=== PATIENT | female | born 1980 | race Caucasian/White ===

== ENCOUNTER 2017-10-29 00:31 | Emergency (ER) | payer MEDICAID ==
[~2017-10-29] VITALS: Ht 170.2 cm; Wt 69.4 kg
[~2017-10-29 00:31] MED LIST: ALBE200T2 PO; METO25TA6 PO; OMEP40CA37 PO; VALS40TA2 PO
[2017-10-29] MEDS ORDERED: CEPH500C5 PO (01:08)
[2017-10-29] MEDS ORDERED: SULF1TAB49 PO (01:08)
[2017-10-29] MEDS ORDERED: IBUP-1984 PO (01:08)
[2017-10-29] MEDS ORDERED: HYDR-3965 PO (01:08)
[2017-10-29 01:29] VITALS: BP 164/113
== END 2017-10-29 01:31 | disposition home or self-care (01) ==
LOC: ER 00:32
DX: L03.012 Cellulitis of left finger (principal); I10 Essential (primary) hypertension; F12.10 Cannabis abuse, uncomplicated; F15.90 Other stimulant use, unspecified, uncomplicated; Z56.0 Unemployment, unspecified; Z98.890 Other specified postprocedural states; Z88.5 Allergy status to narcotic agent
CPT/HCPCS: 99283

== ENCOUNTER 2017-10-31 00:47 | Emergency (ER) | payer MEDICAID ==
[~2017-10-31] VITALS: Ht 170.2 cm; Wt 68.5 kg
[~2017-10-31 00:47] MED LIST changes: +CEPH500C5 PO; +HYDR-3965 PO; +IBUP-1984 PO; +SULF1TAB49 PO
[2017-10-31] MEDS ORDERED: HYDROcodone/acetaminophen 10/325mg tab PO ONE (02:15)
[2017-10-31] MEDS ORDERED: LIDOcaine 1.5% w/epinephrine 1:200,000 5ml ampul IJ ONE (02:15)
[2017-10-31 02:58] VITALS: BP 123/74
== END 2017-10-31 03:00 | disposition left against medical advice (07) ==
LOC: ER 00:48
DX: L03.012 Cellulitis of left finger (principal); I10 Essential (primary) hypertension; F12.10 Cannabis abuse, uncomplicated; F15.10 Other stimulant abuse, uncomplicated; Z88.6 Allergy status to analgesic agent
CPT/HCPCS: 99282; J3490

== ENCOUNTER 2018-04-29 04:03 | Emergency (ER) | payer MEDICAID ==
[~2018-04-29] VITALS: Ht 170.2 cm; Wt 70.0 kg
[~2018-04-29 04:03] MED LIST changes: -HYDR-3965 PO; -IBUP-1984 PO; -SULF1TAB49 PO
[2018-04-29] MEDS ORDERED: normal saline 1000ml 1,000 ML IV ONE ×2 (04:20)
[2018-04-29] MEDS ORDERED: morphine 4 MG/ML inj SYRINge IV ONE (04:20)
[2018-04-29] MEDS ORDERED: ondansetron/PF 4mg/2ml inj IV ONE (04:20)
[2018-04-29 04:39] LABS: BASOPHILS % (AUTO) 0.1 % (0-1); EOSINOPHILS % (AUTO) 0 % (0-6); HEMATOCRIT 34.4 % (35.0-45.0); HEMOGLOBIN 11.3 g/dl (12.0-16.0); LYMPHOCYTES # (AUTO) 0.3 X10'3 (1.1-4.8); LYMPHOCYTES % (AUTO) 4.9 % (21-51); MEAN CORPUSCULAR HEMOGLOBIN 23.3 PG (27.0-31.0); MEAN CORPUSCULAR HGB CONC 32.7 % (33.0-36.5); MEAN CORPUSCULAR VOLUME 71.4 FL (78-98); MEAN PLATELET VOLUME 7.3 FL (7.4-10.4); MONOCYTES # (AUTO) 0.3 X10'3 (0-0.9); MONOCYTES % (AUTO) 5.3 % (2-12); NEUTROPHILS # (AUTO) 5.2 X10'3 (1.8-7.7); NEUTROPHILS % (AUTO) 89.7 % (42-75); PLATELET COUNT 265 X10'3 (140-440); RED BLOOD COUNT 4.82 X10'6 (4.20-5.60); RED CELL DISTRIBUTION WIDTH 18.4 % (11.5-14.5); WHITE BLOOD COUNT 5.9 X10'3 (4.5-11.0)
[2018-04-29 04:54] LABS: INR 1.1 INR; PROTHROMBIN TIME 11.1 SECONDS (9.0-12.0)
[2018-04-29 04:57] LABS: ALANINE AMINOTRANSFERASE 24 U/L (12-78); ALBUMIN 3.2 G/DL (3.4-5.0); ALBUMIN/GLOBULIN RATIO 0.9 (1.1-1.5); ALKALINE PHOSPHATASE 81 IU/L (46-116); ANION GAP 8 (8-16); ANISOCYTOSIS 2+; ASPARTATE AMINO TRANSFERASE 20 U/L (10-37); BILIRUBIN,TOTAL 0.3 MG/DL (0.1-1.0); BLOOD UREA NITROGEN 13 MG/DL (7-18); BUN/CREATININE RATIO 12.5 (6.6-38.0); CALCIUM 8.4 MG/DL (8.5-10.1); CHLORIDE 102 MMOL/L (99-107); CREATININE 1.04 MG/DL (0.40-0.90); GLUCOSE 94 MG/DL (70-104); MICROCYTOSIS 1+; PLATELET ESTIMATE NORMAL; POTASSIUM 3.4 MMOL/L (3.5-5.1); SODIUM 135 MMOL/L (135-145); TOTAL CARBON DIOXIDE 24.6 MMOL/L (24-32); TOTAL PROTEIN 6.7 G/DL (6.4-8.2); eGFR 59 ML/MIN
[2018-04-29 05:19] LABS: HCG SERUM QL NEGATIVE
[2018-04-29 05:39] VITALS: BP 177/98
[2018-04-29 05:56] LABS: CLARITY,URINE CLOUDY (Clear); COLOR,URINE BROWN (Yellow); UA COLLECTION TYPE CLN CATCH MIDSTREAM
[2018-04-29 06:24] LABS: BACTERIA,URINE 2+ /HPF (Neg); RBC,URINE TNTC /HPF (0-2); SQUAMOUS EPITHELIAL CELL,UR MODERATE /LPF (FEW)
== END 2018-04-29 05:49 | disposition left against medical advice (07) ==
LOC: ER 04:03
DX: N92.0 Excessive and frequent menstruation with regular cycle (principal); R10.84 Generalized abdominal pain; R11.2 Nausea with vomiting, unspecified; I10 Essential (primary) hypertension; F12.90 Cannabis use, unspecified, uncomplicated; F15.90 Other stimulant use, unspecified, uncomplicated; Z88.5 Allergy status to narcotic agent; Z88.6 Allergy status to analgesic agent; Z79.899 Other long term (current) drug therapy; Z56.0 Unemployment, unspecified
CPT/HCPCS: 36415; 80053; 81001; 84703; 85025; 85610; 87077; 87088; 87186; 96361; 96374; 96375; 99284; J2270; J2405; J7030

== ENCOUNTER 2018-07-27 23:17 | Emergency (ER) | payer MEDICAID ==
[~2018-07-27] VITALS: Ht 170.2 cm; Wt 61.0 kg
[2018-07-27 23:17] VITALS: BP 158/104
[2018-07-27] MEDS ORDERED: ketorolac trometh inj. 60 MG/2 ML VIAL IM ONE (23:35)
[2018-07-27] MEDS ORDERED: DICL50TA8 PO (23:36)
== END 2018-07-27 23:48 | disposition home or self-care (01) ==
LOC: ER 23:17
DX: R07.81 Pleurodynia (principal); I10 Essential (primary) hypertension; F12.10 Cannabis abuse, uncomplicated; F15.10 Other stimulant abuse, uncomplicated; Z56.0 Unemployment, unspecified; Z88.6 Allergy status to analgesic agent
CPT/HCPCS: 71100; 96372; 99284; J1885

== ENCOUNTER 2019-07-03 00:05 | Emergency (ER) | payer MEDICAID ==
[~2019-07-03] VITALS: Ht 170.2 cm; Wt 54.0 kg
[~2019-07-03 00:05] MED LIST changes: -CEPH500C5 PO; +DICL50TA8 PO; +OMEP40CA13 PO; -OMEP40CA37 PO
[2019-07-03 00:12] VITALS: BP 186/113
== END 2019-07-03 01:23 | disposition left against medical advice (07) ==
LOC: ER 00:06
DX: R07.81 Pleurodynia (principal); Z53.21 Procedure and treatment not carried out due to patient leaving prior to being seen by health care provider

== ENCOUNTER 2020-03-31 21:45 | Emergency (ER) | payer MEDICAID ==
[~2020-03-31] VITALS: Ht 170.2 cm; Wt 63.6 kg
[2020-03-31] MEDS ORDERED: morphine 4 MG/ML inj SYRINge IV PRN ×2 (22:05→22:50)
[2020-03-31] MEDS ORDERED: normal saline 1000ML IV soln IVB ONE (22:05)
[2020-03-31] MEDS ORDERED: ondansetron/PF 4mg/2ml inj IV ONE (22:05)
[2020-03-31 22:27] LABS: HEMOGLOBIN 12.7 g/dl (12.0-16.0); LYMPHOCYTES # (AUTO) 0.4 X10'3 (1.1-4.8); MONOCYTES # (AUTO) 0.6 X10'3 (0-0.9); MONOCYTES % (AUTO) 2.7 % (2-12)
[2020-03-31 22:28] LABS: BASOPHILS # (AUTO) 0.1 X10'3 (0-0.2); BASOPHILS % (AUTO) 0.2 % (0-1); EOSINOPHILS % (AUTO) 0 % (0-6); HEMATOCRIT 38.1 % (35.0-45.0); MEAN CORPUSCULAR HEMOGLOBIN 27.5 PG (27.0-31.0); MEAN CORPUSCULAR HGB CONC 33.2 g/dL (33.0-36.5); MEAN CORPUSCULAR VOLUME 82.8 FL (78-98); MEAN PLATELET VOLUME 7.9 FL (7.4-10.4); NEUTROPHILS # (AUTO) 20.2 X10'3 (1.8-7.7); NEUTROPHILS % (AUTO) 95.1 % (42-75); RED BLOOD COUNT 4.61 X10'6 (4.20-5.60); RED CELL DISTRIBUTION WIDTH 16.4 % (11.5-14.5); WHITE BLOOD COUNT 21.3 X10'3 (4.5-11.0)
[2020-03-31 22:29] LABS: ALANINE AMINOTRANSFERASE 25 U/L (12-78); ALBUMIN 3.8 G/DL (3.4-5.0); ALKALINE PHOSPHATASE 78 IU/L (46-116); ANION GAP 7 (8-16); ASPARTATE AMINO TRANSFERASE 23 U/L (10-37); BILIRUBIN,TOTAL 0.8 MG/DL (0.1-1.0); BLOOD UREA NITROGEN 8 MG/DL (7-18); BUN/CREATININE RATIO 6.6 (6.6-38.0); CALCIUM 8.7 MG/DL (8.5-10.1); CHLORIDE 101 MMOL/L (99-107); CREATININE 1.21 MG/DL (0.40-0.90); GLUCOSE 106 MG/DL (70-104); LIPASE 58 U/L (73-393); POTASSIUM 4.1 MMOL/L (3.5-5.1); SODIUM 135 MMOL/L (135-145); TOTAL CARBON DIOXIDE 27.5 MMOL/L (24-32); TOTAL PROTEIN 7.6 G/DL (6.4-8.2); eGFR 49 ML/MIN
[2020-03-31] MEDS ORDERED: famotidine/PF 10 mg/ml inj IV ONE (22:50)
[2020-03-31] MEDS ORDERED: normal saline 1000ML IV soln IV ONE (22:50)
[2020-03-31] MEDS ORDERED: pantoprazole 40 MG vial IV ONE (22:50)
[2020-03-31 22:58] LABS: URINE HCG NEGATIVE (NEG)
[2020-03-31 23:11] LABS: URINE AMPHETAMINE SCREEN POSITIVE (Neg); URINE BARBITUATE SCREEN NEGATIVE (Neg); URINE BENZODIAZEPINES SCREEN NEGATIVE (Neg); URINE CANNABINOID SCREEN NEGATIVE (Neg); URINE COCAINE SCREEN NEGATIVE (Neg); URINE METHADONE SCREEN NEGATIVE (Neg); URINE OPIATE SCREEN POSITIVE (Neg); URINE PHENCYCLIDINE SCREEN NEGATIVE (Neg)
[2020-03-31 23:59] LABS: CLARITY,URINE SLIGHTLY CLOUDY (Clear); COLOR,URINE YELLOW (Yellow); GLUCOSE, URINE NEGATIVE (Neg); KETONES,URINE NEGATIVE (Neg); LEUKOCYTE ESTERASE ,URINE LARGE (Neg); NITRITES, URINE NEGATIVE (Neg); OCCULT BLOOD,URINE LARGE (Neg); PROTEIN,URINE NEGATIVE (Neg); UROBILINOGEN,URINE 0.2 E.U/dL (0.2-1.0)
[2020-04-01 00:05] LABS: UA COLLECTION TYPE CLN CATCH MIDSTREAM
[2020-04-01 00:17] LABS: BACTERIA,URINE 2+ /HPF (Neg); MUCUS STRANDS FEW /LPF (Neg); RBC,URINE 0-2 /HPF (0-2); SQUAMOUS EPITHELIAL CELL,UR MANY /LPF (FEW); WBC,URINE 20-30 /HPF (0-4)
[2020-04-01] MEDS ORDERED: CefTRIAXone 2gm/D5W 50ml 50 ML IV ONE (00:25)
[2020-04-01 02:25] VITALS: BP 146/92
[2020-04-01] MEDS ORDERED: CEPH-572 PO (02:34)
[2020-04-01] MEDS ORDERED: ONDA4TAB6 PO (02:34)
[2020-04-01 02:56] LABS: PLATELET COUNT 233 X10'3 (140-440)
== END 2020-04-01 03:42 | disposition home or self-care (01) ==
LOC: ER 21:45
DX: R10.84 Generalized abdominal pain (principal); F15.10 Other stimulant abuse, uncomplicated; N28.9 Disorder of kidney and ureter, unspecified; N39.0 Urinary tract infection, site not specified; E86.0 Dehydration; R11.0 Nausea; I10 Essential (primary) hypertension; F12.90 Cannabis use, unspecified, uncomplicated; Z98.890 Other specified postprocedural states; Z56.0 Unemployment, unspecified; Z88.6 Allergy status to analgesic agent; Z88.5 Allergy status to narcotic agent; Z79.2 Long term (current) use of antibiotics; Z79.899 Other long term (current) drug therapy
CPT/HCPCS: 36415; 74176; 80053; 80305; 80320; 81001; 81025; 83605; 83690; 84145; 85025; 87040; 96361; 96365; 96375; 96376; 99285; C9113; J0696; J2270; J2405; J3490; J7030; 81003

== ENCOUNTER 2020-05-06 16:58 | Emergency (ER) | payer MEDICAID ==
[~2020-05-06] VITALS: Ht 170.2 cm; Wt 68.2 kg
[~2020-05-06 16:58] MED LIST changes: +ONDA4TAB6 PO
--- NOTE | 2020-05-06 17:11 | NUR ---
PT GIVEN 2 ICE PACKS FOR LOWER LEG SWELLING.
[2020-05-06] MEDS ORDERED: LIDOcaine 1% W/epiNEPHrine 1:200,000 10ml vial IJ ONE (17:20)
--- NOTE | 2020-05-06 17:24 | NUR ---
PT OUT TO XRAY VIA [facility] WITH DIRECTOR TELEVISION NEWS
[2020-05-06 17:31] VITALS: BP 154/99
== END 2020-05-06 18:18 | disposition home or self-care (01) ==
LOC: ER 16:58
DX: S81.811A Laceration without foreign body, right lower leg, initial encounter (principal); M25.511 Pain in right shoulder; M54.6 Pain in thoracic spine; I10 Essential (primary) hypertension; F12.90 Cannabis use, unspecified, uncomplicated; F15.90 Other stimulant use, unspecified, uncomplicated; Z98.890 Other specified postprocedural states; Z56.0 Unemployment, unspecified; Z88.6 Allergy status to analgesic agent; Z88.5 Allergy status to narcotic agent; Z79.899 Other long term (current) drug therapy; W11.XXXA Fall on and from ladder, initial encounter; Y93.89 Activity, other specified; Y92.89 Other specified places as the place of occurrence of the external cause; Y99.8 Other external cause status
CPT/HCPCS: 73590; 99284

== ENCOUNTER 2021-06-22 22:49 | Emergency (ER) | payer MEDICAID ==
[~2021-06-22] VITALS: Ht 170.2 cm; Wt 65.9 kg
[~2021-06-22 22:49] MED LIST changes: +ALBE200T14 PO; -ALBE200T2 PO; +LOP25T PO; -METO25TA6 PO; -OMEP40CA13 PO; +OMEP40CA21 PO
[2021-06-23 00:06] VITALS: BP 177/107
[2021-06-23] MEDS ORDERED: ibuprofen tablet 400 MG TABLET PO ONE (00:40)
== END 2021-06-23 01:32 | disposition home or self-care (01) ==
LOC: ER 22:50
DX: L03.811 Cellulitis of head [any part, except face] (principal); I10 Essential (primary) hypertension; F12.90 Cannabis use, unspecified, uncomplicated; F15.90 Other stimulant use, unspecified, uncomplicated; Z98.890 Other specified postprocedural states; Z56.0 Unemployment, unspecified; Z88.6 Allergy status to analgesic agent; Z88.5 Allergy status to narcotic agent; Z79.899 Other long term (current) drug therapy; Z79.2 Long term (current) use of antibiotics
CPT/HCPCS: 99282

== ENCOUNTER 2023-10-14 17:30 | Emergency (ER) | payer MEDICAID | END 2023-10-14 18:12 | disposition left against medical advice (07) | LOC: ER 17:31 | DX: L08.9 Local infection of the skin and subcutaneous tissue, unspecified (principal); Z53.21 Procedure and treatment not carried out due to patient leaving prior to being seen by health care provider ==

== ENCOUNTER 2023-10-14 20:03 | Emergency (ER) | payer MEDICAID | END 2023-10-14 22:09 | disposition left against medical advice (07) | LOC: ER 20:03 | DX: L08.9 Local infection of the skin and subcutaneous tissue, unspecified (principal); Z53.21 Procedure and treatment not carried out due to patient leaving prior to being seen by health care provider ==

== ENCOUNTER 2025-03-19 21:21 | Emergency (ER) | payer MEDICAID ==
[~2025-03-19] VITALS: Ht 170.2 cm; Wt 68.2 kg
[2025-03-19 21:24] VITALS: BP 128/78; PULSE 93; RESP 18; O2SAT 98
--- NOTE | 2025-03-19 22:20 | RADIOLOGY REPORT ---
CLINICAL INDICATION: ANKLE PAIN TECHNIQUE: DI ANKLE, COMPLETE(3VW MIN) Comparison: None FINDINGS/IMPRESSION: : There is no evidence of acute fracture or dislocation. Soft tissues are unremarkable.
--- NOTE | 2025-03-19 22:40 | Physician Documentation ---
History of Present Illness ~ Chief Complaint: Ankle pain Stated Complaint: L LEG PAIN Time Seen by MD: 21:54 Primary Medical Doctor: [facility] LOCATION HPI Patient is seen today with complaints of pain in his left ankle as sort about a week ago as well as some swelling without any specific injury. Patient denies any chest pain or shortness of breath or abdominal pain or nausea, vomiting, diarrhea or recent illness. He has no other concern or complaint at this time. Tetanus witin 5 years: Yes Medication Reconciliation Allergies: Coded Allergies: acetaminophen (Verified Allergy, Mild, 03/19/25) codeine phosphate (Verified Allergy, Mild, 03/19/25) Scheduled Albendazole (Albenza), 2 TAB PO ONCE Metoprolol Tartrate* (Lopressor tablet*), 1 TABLET PO BID Metoprolol Tartrate* (Lopressor tablet*), 1 TABLET PO BID Omeprazole (Prilosec), 1 CAP PO QAM Ondansetron Hcl (Zofran), 1 TAB PO Q6H Valsartan (Diovan), 1 TABLET PO DAILY Valsartan (Diovan), 1 TABLET PO DAILY Scheduled PRN Diclofenac Sodium (Diclofenac Sodium), 1 TABLET PO BID PRN for pain Past Medical History Past Medical History: Hypertension Past Surgical History: Other Past Family History: NONCONTRIBUTORY Alcohol Use: None Drug Use: marijuana, methamphetamine Lives with: Family Lives In: Home Occupation: unemployed Review of Systems Constitutional: Denies: chills, fever, weakness Eyes: Denies: pain, blurred vision ENT: Denies: ear pain, nose pain, throat pain, mouth pain Respiratory: Denies: cough, shortness of breath Cardiovascular: Denies: chest pain, palpitations Gastrointestinal: Denies: abdominal pain, nausea, vomiting Genitourinary: Denies: burning, dysuria Female Genitalia: Denies: vaginal discharge, pelvic pain Neurological: Denies: headache, dizziness Musculoskeletal: Denies: pain, swelling Integumentary: Denies: rash, lesions Allergic/Immunologic: Denies: hives, itching Hematologic/Lymphatic: Denies: no symptoms reported Psychiatric: Denies: depression, anxiety Physical Exam Vital Signs: Temperature: 98.9, Source: Oral, Heart Rate: 93, Respiratory Rate: 18, BP: 128/78, Pulse Oximetry: 98, Weight: 68.180 Physical Exam General: Awake and Alert, no acute distress. HEENT: Conjunctiva pink, Sclera clear, Mucus Membranes moist. Neck: Supple without masses and tenderness. Resp: Unlabored. Lungs clear to auscultation bilaterally. Heart: Regular Rate and rhythm, normal S1 and S2 without murmur, rub or gallop. Musculoskeletal: Patient on exam has very minimal swelling of left ankle without any erythema or warmth or induration or sign of infection. Patient has no ecchymosis in his neurovascularly intact distally. Motor function intact distally. Extremities: No cyanosis,clubbing or edema. Skin: Warm and Dry. Progress Results/Orders Results/Orders Vital Signs 03/19/25 21:24 Temp 98.9 Pulse 93 Resp 18 B/P (MAP) 128/78 Pulse Ox 98 EKG/XRAY/CT/US/VASC/MRI Bone/Soft Tissue X-Ray (Ext.) : Additional Comment X-ray of left ankle interpreted by myself today shows no sign of acute fracture, no osteolytic or blastic lesions, bones in anatomic alignment. DIAGNOSTIC RADIOLOGY Patient: BRITNEY GOMEZ Medical Record: [id number] [facility] : 1980, Age: 44 Sex: Female Location: ER Patient Status: REG ER Service Date/Time: 03/19/252125 Ordering Physician: YUE CHUA MD Exam: ANKLE, COMPLETE(3VW MIN) CLINICAL INDICATION: ANKLE PAIN TECHNIQUE: DI ANKLE, COMPLETE(3VW MIN) Comparison: None FINDINGS/IMPRESSION: : There is no evidence of acute fracture or dislocation. Soft tissues are unremarkable. Electronically Signed by:JORGE ALDRIDGE MD Date & Time: 03/19/252216 Dictated by: JORGE ALDRIDGE MD Dictation date and time: 03/19/25 4430 Primary Care Provider: NO PRIMARY CARE PROVIDER cc: YUE CHUA MD ~ Medical Decision Making Findings Patient is seen today with complaints of pain in his left ankle as sort about a week ago as well as some swelling without any specific injury. Patient denies any chest pain or shortness of breath or abdominal pain or nausea, vomiting, diarrhea or recent illness. He has no other concern or complaint at this time. Patient did have x-ray taken of left ankle that showed no sign of acute fracture. Patient will follow up with primary care in 2-5 days if no better as needed sooner. Return to ED with any worsening, concerning or changing symptoms . Departure Disposition: HOME / SELF CARE / HOMELESS Impression: Primary Impression: Sprain of ankle Qualified Codes: S93.402A - Sprain of unspecified ligament of left ankle, initial encounter Condition: Stable Discharge Instructions: Ankle Sprain Additional Instructions: Patient did have x-ray taken of left ankle that showed no sign of acute fracture. Patient will follow up with primary care in 2-5 days if no better as needed sooner. Return to ED with any worsening, concerning or changing symptoms. Referrals: NO PRIMARY CARE PROVIDER (PCP) Signature Scribe Signature: No scribe Attestation: No scribe RACHEL MORENO PAC Mar 19, 2025 22:40
[2025-03-19 23:01] VITALS: TEMP 98.9
== END 2025-03-19 23:02 | disposition home or self-care (01) ==
LOC: ER 21:21
DX: S93.492A Sprain of other ligament of left ankle, initial encounter (principal); I10 Essential (primary) hypertension; F12.90 Cannabis use, unspecified, uncomplicated; F15.90 Other stimulant use, unspecified, uncomplicated; Z88.5 Allergy status to narcotic agent; Z88.8 Allergy status to other drugs, medicaments and biological substances; Z79.899 Other long term (current) drug therapy; Z56.0 Unemployment, unspecified; X58.XXXA Exposure to other specified factors, initial encounter; Y93.89 Activity, other specified; Y92.89 Other specified places as the place of occurrence of the external cause; Y99.8 Other external cause status
CPT/HCPCS: 73610; 99283

== ENCOUNTER 2025-03-20 00:03 | Emergency (ER) | payer MEDICAID ==
[~2025-03-20] VITALS: Ht 170.2 cm; Wt 68.2 kg
[2025-03-20 00:27] VITALS: BP 148/79; PULSE 94; RESP 20; O2SAT 99
--- NOTE | 2025-03-20 03:24 | Physician Documentation ---
History of Present Illness ~ Chief Complaint: Ankle pain Stated Complaint: ANKLE PAIN Time Seen by MD: 03:23 Primary Medical Doctor: [facility] LOCATION HPI 44-year-old female with left ankle swelling. The patient was seen here yesterday for ankle swelling. She had an x-ray that did not show a fracture. Apparently she was told to check back in and have an ultrasound rule out DVT. This was ordered before my evaluation. The patient has no other acute concerns at this time. Tetanus witin 5 years: Yes Medication Reconciliation Allergies: Coded Allergies: acetaminophen (Verified Allergy, Mild, 03/20/25) codeine phosphate (Verified Allergy, Mild, 03/20/25) Scheduled Albendazole (Albenza), 2 TAB PO ONCE Metoprolol Tartrate* (Lopressor tablet*), 1 TABLET PO BID Metoprolol Tartrate* (Lopressor tablet*), 1 TABLET PO BID Omeprazole (Prilosec), 1 CAP PO QAM Ondansetron Hcl (Zofran), 1 TAB PO Q6H Valsartan (Diovan), 1 TABLET PO DAILY Valsartan (Diovan), 1 TABLET PO DAILY Scheduled PRN Diclofenac Sodium (Diclofenac Sodium), 1 TABLET PO BID PRN for pain Past Medical History Past Medical History: Hypertension Past Surgical History: Other Past Family History: NONCONTRIBUTORY Smoking Status: Former smoker Alcohol Use: None Drug Use: marijuana, methamphetamine Lives with: Family Lives In: Home Occupation: unemployed Review of Systems Constitutional: Denies: fever Musculoskeletal: Reports: swelling Physical Exam Vital Signs: Temperature: 98.7, Heart Rate: 94, Respiratory Rate: 20, BP: 148/79, Pulse Oximetry: 99, Weight: 68.180 Physical Exam General: This is a tired-appearing middle-aged woman lying in bed with a large dog, asleep when I enter the room Heart: Regular rate and rhythm, normal-appearing peripheral perfusion to the left leg Lungs: normal work of breathing, normal oxygen saturation on room air Extremities: Warm and well-perfused Left lower extremity: The patient has mild swelling to the left ankle. No overlying erythema or other skin changes or rashes. Neuro: Alert and oriented Progress Results/Orders Results/Orders Vital Signs 03/20/25 00:27 Temp 98.7 Pulse 94 Resp 20 B/P (MAP) 148/79 Pulse Ox 99 EKG/XRAY/CT/US/VASC/MRI Vascular : Impression DVT ultrasound is negative Medical Decision Making Additional info obtained from: old records Findings I reviewed the records from her ER visit yesterday, for ankle swelling Additional Comment The patient was seen here in the emergency department yesterday for ankle swelling. She had a normal x-ray. Apparently she checked back in to have an ultrasound done of her ankle to rule out DVT. Ultrasound does not show a DVT. There was no evidence of infection or other dangerous process. She will be discharged with symptomatic treatment for presumed ankle sprain. Departure Time of Disposition: 03:24 Disposition: 01 HOME / SELF CARE / HOMELESS Impression: Primary Impression: Sprain of ankle Condition: Stable Discharge Instructions: Ankle Sprain Referrals: NO PRIMARY CARE PROVIDER (PCP) Education Educated: Patient Educated regarding: diagnosis, treatment Signature Scribe Signature: na Attestation: YUE May MD Mar 20, 2025 03:24
[2025-03-20 03:49] VITALS: TEMP 98.7
--- NOTE | 2025-03-20 03:57 | VASCULAR REPORT ---
Left lower extremity venous duplex Clinical History: Left lower extremity pain and edema Comparison: None Technique: Duplex Doppler evaluation of the deep venous system of the left lower extremity from the common femor al vein to the popliteal vein including color Doppler and spectral/pulsed waveform analysis was perfo rmed. Findings: The common femoral vein demonstrates appropriate compressibility and waveform variability. There is compressibility/patency of the great saphenous vein at the proximal thigh. The femoral vein demonstrates appropriate compressibility and waveform variability. The deep femoral vein demonstrates appropriate compressibility and waveform variability. The popliteal vein demonstrates appropriate compressibility and waveform variability. There is normal compressibility at the tibioperoneal trunk. Impression: 1. No left femoropopliteal venous thrombosis. 2. Contralateral common femoral vein is patent.
== END 2025-03-20 03:50 | disposition home or self-care (01) ==
LOC: ER 00:04
DX: S93.402A Sprain of unspecified ligament of left ankle, initial encounter (principal); I10 Essential (primary) hypertension; F15.90 Other stimulant use, unspecified, uncomplicated; F12.90 Cannabis use, unspecified, uncomplicated; Z87.891 Personal history of nicotine dependence; Z88.8 Allergy status to other drugs, medicaments and biological substances; Z88.5 Allergy status to narcotic agent
CPT/HCPCS: 93971; 99284

== ENCOUNTER 2025-03-24 03:55 | Emergency (ER) | payer MEDICAID ==
[~2025-03-24] VITALS: Ht 170.2 cm; Wt 68.1 kg
[2025-03-24 04:00] VITALS: TEMP 96.8
[2025-03-24] MEDS ORDERED: ketorolac trometh 15mg/ml vial 15 MG/ML ML IM ONE (04:25)
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
[2025-03-24] MEDS: proCHLORperazine 10mg tablet PO ONE (04:50)
[2025-03-24] MEDS: ketorolac trometh 30MG/ML vial 30 MG/ML VIAL IV ONE (04:52)
--- NOTE | 2025-03-24 05:05 | RADIOLOGY REPORT ---
EXAM: CT CT HEAD INDICATION: horan/truauma TECHNIQUE: CT of the head without intravenous contrast. Radiation Dose : 1. Head: CT Dose: CTDI volume is 41 mGy. Dose-length product is 856 mGy*cm The dose indicators for CT are the volume Computed Tomography (CT) Dose Index (CTDIvol) and the Dose Length Product (DLP), and are measured in units of mGy and mGy-cm, respectively. These indicators are not patient dose, but values generated from the CT scanner acquisition factors. The report includes radiation exposure data for exposures received during this examination. COMPARISON: None FINDINGS: There is no evidence of acute intracranial hemorrhage, extra-axial collection, mass effect, midline s hift, herniation or hydrocephalus. The ventricles, sulci and cisterns are age appropriate. The alcala-white differentiation is intact. Patchy periventricular and subcortical white matter hypoattenuation is nonspecific but may be related to small vessel ischemic disease. The visualized paranasal sinuses and mastoid air cells are clear. The surrounding soft tissues and osseous structures are unremarkable. IMPRESSION: No acute intracranial abnormality. Radiation optimization: All CT scans at this facility use at least one of these dose optimization candido hniques: automated exposure control mA and/or kV adjustment per patient size (includes targeted exam s where dose is matched to clinical indication) or iterative reconstruction.
[2025-03-24 05:18] VITALS: BP 173/114; PULSE 97; RESP 16; O2SAT 98
== END 2025-03-24 05:20 | disposition home or self-care (01) ==
LOC: ER 03:56
DX: R51.9 Headache, unspecified (principal); I10 Essential (primary) hypertension; F12.90 Cannabis use, unspecified, uncomplicated; F15.90 Other stimulant use, unspecified, uncomplicated; Z88.5 Allergy status to narcotic agent; Z88.8 Allergy status to other drugs, medicaments and biological substances
CPT/HCPCS: 70450; 99284; Q0164